=== PATIENT | female | born 1980 | race Caucasian/White ===

== ENCOUNTER → 2021-06-09 | Outpatient (CLI) | payer OTHER | LOC: KOH-I 08:57 | DX: M79.672 Pain in left foot (principal) | CPT/HCPCS: 73630 ==

== ENCOUNTER → 2021-08-07 | Outpatient (CLI) | payer OTHER | LOC: KOH-I 08:32 | DX: E04.1 Nontoxic single thyroid nodule (principal); E04.2 Nontoxic multinodular goiter; Z88.1 Allergy status to other antibiotic agents | CPT/HCPCS: 76536 ==

== ENCOUNTER → 2022-02-11 | Outpatient (CLI) | payer OTHER | LOC: KOH-I 14:56 | DX: R59.1 Generalized enlarged lymph nodes (principal); E04.2 Nontoxic multinodular goiter | CPT/HCPCS: 76536 ==

== ENCOUNTER → 2022-05-31 | Outpatient (CLI) | payer OTHER | LOC: KOH-I 10:04 | DX: R10.32 Left lower quadrant pain (principal); R10.31 Right lower quadrant pain; R10.2 Pelvic and perineal pain; R11.0 Nausea; R63.5 Abnormal weight gain; R53.83 Other fatigue; R10.812 Left upper quadrant abdominal tenderness | CPT/HCPCS: 74022 ==